=== PATIENT | male | born 1970 | race Asian ===

== ENCOUNTER 2017-09-24 03:57 | Inpatient (IN) | payer MEDICARE ==
[2017-09-24] VITALS (48 sets, daily range): BP systolic 68–174; BP diastolic 31–89
[~2017-09-24] VITALS: Ht 165.1 cm; Wt 77.0 kg
[2017-09-24] MEDS ORDERED: SODIUM CHLORIDE 0.9% 1,000 ML IV ONE ×2 (04:05→05:00)
[2017-09-24] MEDS ORDERED: ONDANSETRON HCL 4 MG/2 ML VIAL ONE (04:13)
[2017-09-24] MEDS ORDERED: PANTOPRAZOLE 40 MG/10 ML VIAL IV ONE (04:27)
[2017-09-24] MEDS ORDERED: PHYTONADIONE (VIT K)10 MG/ML 1ML VIAL SUBCUT ONE (04:30)
[2017-09-24 04:40] LABS: Basophils # (auto) 0 uL; Eosinophils # (auto) 0 uL; Eosinophils % (auto) 0.5 % (0.0-7.0); Hemoglobin 7.4 g/dL (13.5-17.5); Lymphocytes # (auto) 0.1 uL; Monocytes # (auto) 0 uL; Neutrophils # (auto) 0.7 uL; Red Blood Cells 2.09 10^6/uL (4.5-5.90)
[2017-09-24 04:42] LABS: Basophils % (auto) 0.3 % (0.0-2.0); Hematocrit 22.4 % (41.0-53.0); Lymphocytes % (auto) 11.4 % (10.0-50.0); Mean Corpuscular Hemoglobin 35.5 pg (28.0-32.0); Mean Corpuscular Hgb Conc. 33.3 g/dL (32.0-36.0); Mean Corpuscular Volume 106.8 fL (80.0-100.0); Monocytes % (auto) 4.4 % (0.0-12.0); Neutrophils % (auto) 83.4 % (37.0-80.0); Nucleated Red Blood Cells % 0.9 %; Platelet Count (auto) 32 10^3/uL (140-450); Red Cell Distribution Width 19.5 % (11.8-14.3)
[2017-09-24 04:50] LABS: INR 1.41 (0.9-1.15); Prothrombin Time 15.4 sec (9.37-12.3)
[2017-09-24 04:52] LABS: White Blood Cell 0.9 10^3/uL (4.4-10.8)
[2017-09-24 04:55] LABS: Albumin 1.8 g/dL (3.4-5.0); BUN/Creatinine Ratio 7.5; Calcium 7.8 mg/dL (8.5-10.1); Potassium 3.4 mmol/L (3.5-5.1)
[2017-09-24 04:58] LABS: Bilirubin, Total 2.3 mg/dL (0.2-1.0); Total Protein 6.2 g/dL (6.4-8.2)
[2017-09-24] MEDS ORDERED: ONDANSETRON HCL 4 MG/2 ML VIAL IV ONE (05:00)
[2017-09-24] MEDS ORDERED: PANTOPRAZOLE 80 MG in SODIUM CHL 0.9% 60 ML IV ONE (05:00)
[2017-09-24] MEDS ORDERED: ALBUMIN 5% 250 ML IV ONE (05:30)
[2017-09-24 06:21] LABS: Fibrinogen 122.5 mg/dL (177-375)
[2017-09-24] MEDS ORDERED: NOREPINEPHRINE 8 MG/250ML KIT 250 ML IV ONE (06:32)
[2017-09-24] MEDS: NOREPINEPHRINE 8 MG/250ML KIT 250 ML IV SCH (06:59)
[2017-09-24] MEDS ORDERED: SODIUM CHLORIDE 0.9% 1,000 ML IVB ONE (07:54)
[2017-09-24] MEDS ORDERED: OCTREOTIDE ACETATE 500 MCG in SODIUM CHL 0.9% 100 ML IV ONE (08:00)
[2017-09-24 08:23] LABS: Magnesium 1.6 mg/dL (1.6-2.6)
[2017-09-24] MEDS ORDERED: MIDAZOLAM HCL 5 MG/ML-1ML VIAL ONE (13:00)
[2017-09-24] MEDS ORDERED: fentaNYL CITRATE 100 MCG/2 ML VL ONE (13:00)
[2017-09-24] MEDS ORDERED: SODIUM CHLORIDE LOCK 10 ML ONE (13:00)
[2017-09-24] MEDS ORDERED: diphenhdrAMINE HCL 50 MG/1 ML VL ONE (13:04)
[2017-09-24] MEDS: SODIUM CHLORIDE 0.9% 1,000 ML IV SCH ×2 (13:14→21:25)
[2017-09-24] MEDS ORDERED: MORPHINE SULFATE 4 MG/ML SYR/VIAL IV PRN ×3 (13:15→14:15)
[2017-09-24] MEDS ORDERED: PROMETHAZINE HCL 25 MG/ML 1ML IV PRN (13:15)
[2017-09-24] MEDS ORDERED: LEVOFLOXACIN 500MG 100 ML IV ONE ×2 (13:15→13:30)
[2017-09-24] MEDS ORDERED: NITROGLYCERIN 0.4 MG SL TAB SL PRN (13:15)
[2017-09-24] MEDS ORDERED: LORazepam 2MG/ML-1ML VIAL IV PRN (13:45)
[2017-09-24] MEDS ORDERED: THIAMINE HCL 100 MG/ML 2ML VIAL IV ONE (13:45)
[2017-09-24 14:02] LABS: Basophils # (auto) 0 uL; Eosinophils # (auto) 0 uL; Lymphocytes # (auto) 0.1 uL; Monocytes # (auto) 0.2 uL; Platelet Count (auto) 29 10^3/uL (140-450); White Blood Cell 2.5 10^3/uL (4.4-10.8)
[2017-09-24 14:04] LABS: Basophils % (auto) 0.2 % (0.0-2.0); Hematocrit 21.6 % (41.0-53.0); Mean Corpuscular Hemoglobin 34.5 pg (28.0-32.0); Mean Corpuscular Hgb Conc. 32.5 g/dL (32.0-36.0); Monocytes % (auto) 6.1 % (0.0-12.0); Neutrophils # (auto) 2.3 uL; Neutrophils % (auto) 90.7 % (37.0-80.0); Nucleated Red Blood Cells % 0.7 %; Red Blood Cells 2.03 10^6/uL (4.5-5.90)
[2017-09-24 14:25] LABS: Red Cell Distribution Width 21.2 % (11.8-14.3)
[2017-09-24] MEDS: metroNIDAZOLE 500MG/100ML 100 ML IV SCH ×2 (17:00→22:03)
[2017-09-24] MEDS: MORPHINE SULFATE 4 MG/ML SYR/VIAL IV PRN (17:27)
[2017-09-24] MEDS: OCTREOTIDE ACETATE 500 MCG in SODIUM CHL 0.9% 99 ML IV SCH (18:00)
[2017-09-24 18:44] LABS: Basophils # (auto) 0 uL; Eosinophils # (auto) 0 uL; Hemoglobin 8.2 g/dL (13.5-17.5); Lymphocytes # (auto) 0.1 uL; Lymphocytes % (auto) 2.5 % (10.0-50.0); Monocytes # (auto) 0.2 uL; Neutrophils # (auto) 3.3 uL; White Blood Cell 3.6 10^3/uL (4.4-10.8)
[2017-09-24] MEDS ORDERED: OMEP20CA74 OR (18:46)
[2017-09-24] MEDS ORDERED: LOSA25TA9 PO (18:46)
[2017-09-24] MEDS ORDERED: METO25TA5 PO (18:46)
[2017-09-24] MEDS ORDERED: ALLO300T2 PO (18:46)
[2017-09-24 18:47] LABS: Basophils % (auto) 0.1 % (0.0-2.0); Eosinophils % (auto) 0.1 % (0.0-7.0); Hematocrit 25.2 % (41.0-53.0); Mean Corpuscular Hemoglobin 32.8 pg (28.0-32.0); Mean Corpuscular Hgb Conc. 32.4 g/dL (32.0-36.0); Mean Corpuscular Volume 101.2 fL (80.0-100.0); Monocytes % (auto) 5.2 % (0.0-12.0); Neutrophils % (auto) 92.1 % (37.0-80.0); Nucleated Red Blood Cells % 0.4 %; Platelet Count (auto) 28 10^3/uL (140-450); Red Blood Cells 2.49 10^6/uL (4.5-5.90)
[2017-09-24 19:06] LABS: Red Cell Distribution Width 22.2 % (11.8-14.3)
[2017-09-24] MEDS ORDERED: ACETAMINOPHEN 325 MG TAB PO PRN (20:15)
[2017-09-24] MEDS: PANTOPRAZOLE 40 MG/10 ML VIAL IV SCH (22:03)
[2017-09-24] MEDS ORDERED: SODIUM BICARBONATE 8.4 % INJ 50ML VIAL IV ONE (23:00)
[2017-09-24] MEDS ORDERED: SODIUM BICARBONATE 8.4% INJ 50ML SYRINGE ONE (23:07)
[2017-09-24] MEDS ORDERED: ALBUTEROL SULF 2.5 MG/0.5ML(0.5%) NEB SOLN NEB ONE (23:30)
[2017-09-24] MEDS ORDERED: IPRATROPIUM BROM 0.5 MG/2.5ML INH SOL NEB ONE (23:30)
[2017-09-24 23:44] LABS: Hematocrit 22.9 % (41.0-53.0); Mean Corpuscular Volume 100.4 fL (80.0-100.0); Platelet Count (auto) 28 10^3/uL (140-450); Red Blood Cells 2.28 10^6/uL (4.5-5.90); White Blood Cell 4.3 10^3/uL (4.4-10.8)
[2017-09-24 23:46] LABS: Hemoglobin 7.6 g/dL (13.5-17.5); Mean Corpuscular Hemoglobin 33.5 pg (28.0-32.0); Mean Corpuscular Hgb Conc. 33.4 g/dL (32.0-36.0)
[2017-09-24 23:54] LABS: Red Cell Distribution Width 22.2 % (11.8-14.3)
[2017-09-25] VITALS (106 sets, daily range): BP systolic 78–164; BP diastolic 37–110
[2017-09-25 00:12] LABS: Albumin 1.9 g/dL (3.4-5.0); Calcium 6.5 mg/dL (8.5-10.1); Potassium 3.8 mmol/L (3.5-5.1)
[2017-09-25 00:15] LABS: Bilirubin, Total 4.8 mg/dL (0.2-1.0); Total Protein 5.3 g/dL (6.4-8.2)
[2017-09-25 01:10] LABS: Basophils % (manual) 0 (0.0-2.0); Blast Cells 0; Eosinophils % (manual) 0 (0-7); Promyelocytes % 0; Reactive Lymphocytes 0
[2017-09-25 01:32] LABS: Band Neutrophils % (manual) 40; Lymphocytes % (manual) 2 (10.0-50.0); Metamyelocytes % 6; Monocytes % (manual) 2 (0-12); Myelocytes % 1
[2017-09-25] MEDS: NOREPINEPHRINE 8 MG/250ML KIT 250 ML IV SCH ×4 (01:36→23:17)
[2017-09-25] MEDS: OCTREOTIDE ACETATE 500 MCG in SODIUM CHL 0.9% 99 ML IV SCH ×3 (01:39→23:16)
[2017-09-25 02:59] LABS: Hemoglobin 8.7 g/dL (13.5-17.5)
[2017-09-25 03:00] LABS: Hematocrit 25.6 % (41.0-53.0)
[2017-09-25 03:12] LABS: INR 1.59 (0.9-1.15); Partial Thromboplastin Time 49.5 sec (22.64-33.71); Prothrombin Time 17.4 sec (9.37-12.3)
[2017-09-25] MEDS: SODIUM CHLORIDE 0.9% 1,000 ML IV SCH (05:55)
[2017-09-25] MEDS: metroNIDAZOLE 500MG/100ML 100 ML IV SCH (06:01)
[2017-09-25] MEDS ORDERED: IPRATROPIUM BROM 0.5 MG/2.5ML INH SOL NEB ONE (06:15)
[2017-09-25] MEDS ORDERED: ALBUTEROL SULF 2.5 MG/0.5ML(0.5%) NEB SOLN NEB ONE (06:15)
[2017-09-25] MEDS ORDERED: FUROSEMIDE 20 MG/2 ML VIAL ONE (06:36)
[2017-09-25] MEDS ORDERED: FUROSEMIDE 20 MG/2 ML VIAL IV ONE (07:00)
[2017-09-25] MEDS ORDERED: ETOMIDATE (2MG/ML) 20ML VIAL IV ONE ×2 (07:13)
[2017-09-25] MEDS: MIDAZOLAM DRIP 50 mg/50mL 50 ML IV SCH ×6 (07:20→23:46)
[2017-09-25] MEDS ORDERED: MIDAZOLAM DRIP 50 mg/50mL 50 ML IV ONE (07:20)
[2017-09-25 08:58] LABS: Mean Corpuscular Volume 100.3 fL (80.0-100.0); White Blood Cell 9.1 10^3/uL (4.4-10.8)
[2017-09-25 08:59] LABS: Mean Corpuscular Hemoglobin 32.4 pg (28.0-32.0); Mean Corpuscular Hgb Conc. 32.3 g/dL (32.0-36.0); Platelet Count (auto) 41 10^3/uL (140-450); Red Blood Cells 2.79 10^6/uL (4.5-5.90)
[2017-09-25] MEDS: VASOPRESSIN 50 UNITS in D5W 5% 247.5 ML IV SCH ×4 (09:16→23:14)
[2017-09-25 09:32] LABS: Albumin 1.9 g/dL (3.4-5.0); BUN/Creatinine Ratio 15.2; Calcium 6.4 mg/dL (8.5-10.1); Potassium 4.2 mmol/L (3.5-5.1)
[2017-09-25 09:35] LABS: Total Protein 5.7 g/dL (6.4-8.2)
[2017-09-25 09:38] LABS: Basophils % (manual) 0 (0.0-2.0); Blast Cells 0; Eosinophils % (manual) 0 (0-7); Promyelocytes % 0; Reactive Lymphocytes 0
[2017-09-25 09:42] LABS: Band Neutrophils % (manual) 6; Lymphocytes % (manual) 4 (10.0-50.0); Metamyelocytes % 7; Monocytes % (manual) 3 (0-12); Myelocytes % 3
[2017-09-25] MEDS ORDERED: POTASSIUM CHL 20MEQ/100ML 100 ML IV ONE (09:45)
[2017-09-25] MEDS: LORazepam 2MG/ML-1ML VIAL IV PRN ×2 (09:46→17:10)
[2017-09-25 09:55] LABS: INR 1.69 (0.9-1.15); Partial Thromboplastin Time 52.6 sec (22.64-33.71); Prothrombin Time 18.5 sec (9.37-12.3)
[2017-09-25] MEDS ORDERED: LEVOFLOXACIN 500MG 100 ML IV SCH (10:00)
[2017-09-25] MEDS ORDERED: THIAMINE HCL 100 MG/ML 2ML VIAL IV SCH (10:00)
[2017-09-25] MEDS ORDERED: PROPOFOL 0 ML IV ONE (10:04)
[2017-09-25] MEDS: MORPHINE SULFATE 4 MG/ML SYR/VIAL IV PRN (10:10)
[2017-09-25] MEDS: fentaNYL Drip 2500mCg/250mlNS 250 ML IV SCH (10:12)
[2017-09-25 10:33] LABS: Urine Amorphous Crystal FEW /hpf (None Seen); Urine Bacteria FEW /hpf (None Seen); Urine Blood 2+ /uL (Negative); Urine Specific Gravity 1.011 (1.001-1.035); Urine WBC 4 /hpf (0 - 3)
[2017-09-25] MEDS ORDERED: ALBUMIN 25% 100 ML IV ONE (11:15)
[2017-09-25] MEDS: PANTOPRAZOLE 40 MG/10 ML VIAL IV SCH (11:16)
[2017-09-25] MEDS: SODIUM BICARBONATE 50ML VIAL 50 ML in SOD CHL 0.45% 1,000 ML IV SCH (11:44)
[2017-09-25] MEDS ORDERED: chlordiazePOXIDE HCL 25 MG CAP GT ONE (13:00)
[2017-09-25] MEDS: PIPERACILLIN-TAZOB 3.375GM 50 ML IV SCH ×2 (13:51→18:40)
[2017-09-25] MEDS: THIAMINE INJ 100 MG, MULTIPLE VITAMIN 10 ML, FOLIC ACID 1 MG, MAGNESIUM SULF SDV 50% 8 ... IV SCH ×5 (14:13)
[2017-09-25 14:21] LABS: Hepatitis B Surface Antigen Negative (Negative)
[2017-09-25 14:49] LABS: Hepatitis B Core IgM Negative; Hepatitis C Antibody Negative (Negative)
[2017-09-25 14:51] LABS: Hepatitis A Ab IgM Negative
[2017-09-25 15:32] LABS: Hemoglobin 9.4 g/dL (13.5-17.5)
[2017-09-25] MEDS ORDERED: FUROSEMIDE 40 MG/4 ML VIAL IV ONE ×2 (15:45→16:15)
[2017-09-25] MEDS ORDERED: FUROSEMIDE 40 MG/4 ML VIAL ONE ×2 (16:11→22:31)
[2017-09-25] MEDS: ALBUMIN 25% 100 ML IV SCH (16:22)
[2017-09-25] MEDS: VANCOMYCIN 1GM/250ML 250 ML IV SCH (16:41)
[2017-09-25 18:25] LABS: Lactic Acid w/Reflex 10.6 mmol/L (0.4-2.0)
[2017-09-25] MEDS: chlordiazePOXIDE HCL 5 MG CAP GT SCH ×2 (18:40→22:00)
[2017-09-25] MEDS ORDERED: SODIUM BICARBONATE 8.4% INJ 50ML SYRINGE ONE ×2 (20:48→21:10)
[2017-09-25] MEDS ORDERED: SODIUM BICARBONATE 50ML VIAL 50 ML in SOD CHL 0.45% 1,000 ML IV ONE (21:00)
[2017-09-25] MEDS ORDERED: SODIUM BICARBONATE 50ML VIAL 100 ML in SOD CHL 0.45% 1,000 ML IV ONE (21:00)
[2017-09-25] MEDS ORDERED: LINEZOLID 600MG/300ML 300 ML IV SCH (22:00)
[2017-09-25 22:55] LABS: Hematocrit 26.5 % (41.0-53.0); White Blood Cell 4.1 10^3/uL (4.4-10.8)
[2017-09-25 22:56] LABS: Hemoglobin 8.7 g/dL (13.5-17.5); Mean Corpuscular Hemoglobin 32.1 pg (28.0-32.0); Mean Corpuscular Volume 97.5 fL (80.0-100.0); Platelet Count (auto) 40 10^3/uL (140-450); Red Blood Cells 2.72 10^6/uL (4.5-5.90)
[2017-09-25 22:58] LABS: Red Cell Distribution Width 21.9 % (11.8-14.3)
[2017-09-25 23:14] LABS: Albumin 2.4 g/dL (3.4-5.0); BUN/Creatinine Ratio 14.9; Potassium 3.8 mmol/L (3.5-5.1)
[2017-09-25 23:16] LABS: Bilirubin, Total 6.5 mg/dL (0.2-1.0); Total Protein 5.7 g/dL (6.4-8.2)
[2017-09-25 23:23] LABS: Calcium 5.6 mg/dL (8.5-10.1)
[2017-09-25 23:45] LABS: Basophils % (manual) 0 (0.0-2.0); Blast Cells 0; Eosinophils % (manual) 0 (0-7); Promyelocytes % 0; Reactive Lymphocytes 0
[2017-09-25] MEDS ORDERED: CALCIUM GLUC 4.65meq/50ml D5AE 50 ML IV ONE (23:45)
[2017-09-25 23:47] LABS: Band Neutrophils % (manual) 25; Lymphocytes % (manual) 16 (10.0-50.0); Metamyelocytes % 11; Monocytes % (manual) 4 (0-12); Myelocytes % 4
[2017-09-26] VITALS (108 sets, daily range): BP systolic 69–120; BP diastolic 29–98
[2017-09-26] MEDS ORDERED: SODIUM BICARBONATE 8.4 % INJ 50ML VIAL IV ONE ×3
[2017-09-26] MEDS: ALBUMIN 25% 100 ML IV SCH ×4 (00:49→22:00)
[2017-09-26] MEDS: PANTOPRAZOLE 40 MG/10 ML VIAL IV SCH ×3 (00:51→21:49)
[2017-09-26] MEDS ORDERED: CALCIUM GLUC 4.65meq/50ml D5AE 50 ML IV ONE ×5 (01:00→08:15)
[2017-09-26 02:06] LABS: Hematocrit 24.8 % (41.0-53.0); Hemoglobin 8.4 g/dL (13.5-17.5)
[2017-09-26 02:27] LABS: INR 2.22 (0.9-1.15); Prothrombin Time 24.4 sec (9.37-12.3)
[2017-09-26 02:33] LABS: Partial Thromboplastin Time 70.4 sec (22.64-33.71)
[2017-09-26 03:50] LABS: Platelet Count (auto) 25 10^3/uL (140-450); Red Blood Cells 2.51 10^6/uL (4.5-5.90); White Blood Cell 3.8 10^3/uL (4.4-10.8)
[2017-09-26 03:53] LABS: Hematocrit 24.4 % (41.0-53.0); Hemoglobin 8.2 g/dL (13.5-17.5); Mean Corpuscular Hemoglobin 32.5 pg (28.0-32.0); Mean Corpuscular Hgb Conc. 33.5 g/dL (32.0-36.0); Mean Corpuscular Volume 97.1 fL (80.0-100.0)
[2017-09-26 04:15] LABS: Albumin 2.6 g/dL (3.4-5.0); BUN/Creatinine Ratio 13.6; Potassium 3.4 mmol/L (3.5-5.1)
[2017-09-26 04:16] LABS: Bilirubin, Total 6.7 mg/dL (0.2-1.0); Total Protein 5.3 g/dL (6.4-8.2)
[2017-09-26] MEDS: VASOPRESSIN 50 UNITS in D5W 5% 247.5 ML IV SCH ×5 (04:21→16:21)
[2017-09-26] MEDS: MIDAZOLAM DRIP 50 mg/50mL 50 ML IV SCH ×4 (04:22→20:00)
[2017-09-26 04:39] LABS: Calcium 5.8 mg/dL (8.5-10.1)
[2017-09-26 04:55] LABS: Red Cell Distribution Width 21.6 % (11.8-14.3)
[2017-09-26 04:56] LABS: Basophils % (manual) 0 (0.0-2.0); Blast Cells 0; Eosinophils % (manual) 0 (0-7); Promyelocytes % 0; Reactive Lymphocytes 0
[2017-09-26] MEDS ORDERED: VASOPRESSIN 20 UNIT/ML ONE (05:43)
[2017-09-26] MEDS: PIPERACILLIN-TAZOB 3.375GM 50 ML IV SCH ×5 (06:00→23:36)
[2017-09-26] MEDS: chlordiazePOXIDE HCL 5 MG CAP GT SCH ×4 (06:00→21:49)
[2017-09-26] MEDS: SODIUM BICARBONATE 50ML VIAL 50 ML in SOD CHL 0.45% 1,000 ML IV SCH (06:30)
[2017-09-26] MEDS: OCTREOTIDE ACETATE 500 MCG in SODIUM CHL 0.9% 99 ML IV SCH (07:15)
[2017-09-26] MEDS ORDERED: FUROSEMIDE 20 MG/2 ML VIAL IV ONE (08:00)
[2017-09-26] MEDS ORDERED: PHENYLEPHRINE INJ 20 MG in SODIUM CHL 0.9% 250 ML IV SCH (08:04)
[2017-09-26] MEDS: HYDROCORTISONE SOD SUCC 100 MG/2ML INJ VIAL IV SCH ×3 (08:15→20:56)
[2017-09-26 08:17] LABS: Band Neutrophils % (manual) 47; Lymphocytes % (manual) 12 (10.0-50.0); Metamyelocytes % 8; Monocytes % (manual) 5 (0-12); Myelocytes % 2
[2017-09-26] MEDS: PHENYLEPHRINE INJ 20 MG in D5W 5% 250 ML IV SCH ×5 (08:43→22:20)
[2017-09-26] MEDS: fentaNYL Drip 2500mCg/250mlNS 250 ML IV SCH (09:09)
[2017-09-26] MEDS: THIAMINE INJ 100 MG, MULTIPLE VITAMIN 10 ML, FOLIC ACID 1 MG, MAGNESIUM SULF SDV 50% 8 ... IV SCH ×5 (12:00)
[2017-09-26] MEDS: VANCOMYCIN 1GM/250ML 250 ML IV SCH (16:00)
[2017-09-26] MEDS: NOREPINEPHRINE 8 MG/250ML KIT 250 ML IV SCH ×2 (18:37→23:37)
[2017-09-26] MEDS ORDERED: PHENYLEPHRINE IV 250 ML IV ONE (20:20)
[2017-09-26] MEDS ORDERED: PHENYLEPHRINE IV 500 ML IV ONE (22:12)
[2017-09-27] VITALS (55 sets, daily range): BP systolic 78–107; BP diastolic 34–60
[2017-09-27] MEDS: PHENYLEPHRINE INJ 20 MG in D5W 5% 250 ML IV SCH ×5 (00:15→08:16)
[2017-09-27] MEDS ORDERED: PHENYLEPHRINE IV 250 ML IV ONE ×4 (00:25→06:41)
[2017-09-27] MEDS: MIDAZOLAM DRIP 50 mg/50mL 50 ML IV SCH ×3 (01:15→10:52)
[2017-09-27] MEDS: VASOPRESSIN 50 UNITS in D5W 5% 247.5 ML IV SCH ×4 (01:37→10:58)
[2017-09-27] MEDS: HYDROCORTISONE SOD SUCC 100 MG/2ML INJ VIAL IV SCH ×2 (02:00→08:47)
[2017-09-27] MEDS: SODIUM BICARBONATE 50ML VIAL 50 ML in SOD CHL 0.45% 1,000 ML IV SCH (03:30)
[2017-09-27] MEDS: NOREPINEPHRINE 8 MG/250ML KIT 250 ML IV SCH ×2 (03:47→08:47)
[2017-09-27 04:50] LABS: Eosinophils % (auto) 1.7 % (0.0-7.0); Lymphocytes % (auto) 2.6 % (10.0-50.0); Monocytes % (auto) 6.8 % (0.0-12.0); Neutrophils % (auto) 88.8 % (37.0-80.0); White Blood Cell 11.5 10^3/uL (4.4-10.8)
[2017-09-27 04:51] LABS: Basophils % (auto) 0.1 % (0.0-2.0); Eosinophils # (auto) 0.2 uL; Hematocrit 23.8 % (41.0-53.0); Hemoglobin 7.7 g/dL (13.5-17.5); Lymphocytes # (auto) 0.3 uL; Mean Corpuscular Hemoglobin 32.5 pg (28.0-32.0); Mean Corpuscular Volume 101.2 fL (80.0-100.0); Monocytes # (auto) 0.8 uL; Neutrophils # (auto) 10.2 uL; Nucleated Red Blood Cells % 0.8 %; Red Blood Cells 2.35 10^6/uL (4.5-5.90)
[2017-09-27 04:52] LABS: Mean Corpuscular Hgb Conc. 32.2 g/dL (32.0-36.0); Platelet Count (auto) 25 10^3/uL (140-450); Red Cell Distribution Width 21.6 % (11.8-14.3)
[2017-09-27 04:54] LABS: Basophils # (auto) 0.1 uL
[2017-09-27 04:59] LABS: Albumin 3.2 g/dL (3.4-5.0); BUN/Creatinine Ratio 8.2; Bilirubin, Total 10.2 mg/dL (0.2-1.0); Calcium 6.1 mg/dL (8.5-10.1); Potassium 3.5 mmol/L (3.5-5.1); Total Protein 6.1 g/dL (6.4-8.2)
[2017-09-27] MEDS: chlordiazePOXIDE HCL 5 MG CAP GT SCH ×2 (06:00→10:59)
[2017-09-27] MEDS: ALBUMIN 25% 100 ML IV SCH (06:25)
[2017-09-27] MEDS: PIPERACILLIN-TAZOB 3.375GM 50 ML IV SCH ×2 (06:25→12:00)
[2017-09-27] MEDS: fentaNYL Drip 2500mCg/250mlNS 250 ML IV SCH (08:17)
[2017-09-27] MEDS: PANTOPRAZOLE 40 MG/10 ML VIAL IV SCH (10:00)
[2017-09-27] MEDS ORDERED: LORazepam 2MG/ML-1ML VIAL IV ONE (12:00)
[2017-09-27] MEDS: THIAMINE INJ 100 MG, MULTIPLE VITAMIN 10 ML, FOLIC ACID 1 MG, MAGNESIUM SULF SDV 50% 8 ... IV SCH ×5 (12:00)
[2017-09-27] MEDS ORDERED: MORPHINE SULFATE 4 MG/ML SYR/VIAL IV PRN (12:00)
== END 2017-09-27 19:40 | disposition expired | DRG 871 ==
LOC: EDBD 03:57 → ER 03:57 → EDUNIT# 03:57 → TELE 03:58 → ICU WEST 14:08
PROVIDERS: ADMIT Internal Medicine; ATTEND Internal Medicine
PROC: 30233L1 Transfusion of Nonautologous Fresh Plasma into Peripheral Vein, Percutaneous Approach (ICD-10-PCS; 2017-09-24)
PROC: 30233N1 Transfusion of Nonautologous Red Blood Cells into Peripheral Vein, Percutaneous Approach (ICD-10-PCS; 2017-09-24)
PROC: 30233R1 Transfusion of Nonautologous Platelets into Peripheral Vein, Percutaneous Approach (ICD-10-PCS; 2017-09-24)
PROC: 30233K1 Transfusion of Nonautologous Frozen Plasma into Peripheral Vein, Percutaneous Approach (ICD-10-PCS; 2017-09-24)
PROC: 02H633Z Insertion of Infusion Device into Right Atrium, Percutaneous Approach (ICD-10-PCS; 2017-09-24)
PROC: 5A1945Z Respiratory Ventilation, 24-96 Consecutive Hours (ICD-10-PCS; principal; 2017-09-25)
PROC: 0BH17EZ Insertion of Endotracheal Airway into Trachea, Via Natural or Artificial Opening (ICD-10-PCS; 2017-09-25)
DX: A41.9 Sepsis, unspecified organism (principal); J96.01 Acute respiratory failure with hypoxia; N17.0 Acute kidney failure with tubular necrosis; J69.0 Pneumonitis due to inhalation of food and vomit; E43 Unspecified severe protein-calorie malnutrition; R65.21 Severe sepsis with septic shock; I95.9 Hypotension, unspecified; R57.1 Hypovolemic shock; I85.11 Secondary esophageal varices with bleeding; K76.6 Portal hypertension; D62 Acute posthemorrhagic anemia; E83.51 Hypocalcemia; D61.818 Other pancytopenia; D68.9 Coagulation defect, unspecified; E87.4 Mixed disorder of acid-base balance; F10.239 Alcohol dependence with withdrawal, unspecified; N28.0 Ischemia and infarction of kidney; K31.89 Other diseases of stomach and duodenum; K74.69 Other cirrhosis of liver; F41.9 Anxiety disorder, unspecified; D72.819 Decreased white blood cell count, unspecified; K74.60 Unspecified cirrhosis of liver; E87.6 Hypokalemia; F17.210 Nicotine dependence, cigarettes, uncomplicated; I70.0 Atherosclerosis of aorta; I12.9 Hypertensive chronic kidney disease with stage 1 through stage 4 chronic kidney disease, or unspecified chronic kidney disease; K21.9 Gastro-esophageal reflux disease without esophagitis; K72.90 Hepatic failure, unspecified without coma; N18.3 Chronic kidney disease, stage 3 (moderate); Z66 Do not resuscitate; M10.9 Gout, unspecified; Z68.28 Body mass index [BMI] 28.0-28.9, adult; Z71.3 Dietary counseling and surveillance
CPT/HCPCS: 36415; 36430; 36556; 36600; 43235; 71045; 74176; 76700; 76705; 80053; 80074; 81001; 82150; 82805; 83605; 83615; 83690; 83735; 85007; 85014; 85018; 85025; 85027; 85045; 85384; 85610; 85730; 86703; 86850; 86900; 86901; 86920; 87081; 93005; 94002; 94003; 94640; 96365; 96367; 96372; 96375; 99291; C9113; J0610; J1956; J2250; J2405; J2543; J2704; J3010; J3430; J3490; J7060